=== PATIENT | female | born 1975 | race Caucasian/White ===

== ENCOUNTER 2017-04-21 20:05 | Emergency (ER) | payer OTHER ==
--- NOTE | 2017-04-21 22:02 | DIAGNOSTIC IMAGING REPORT ---
PROCEDURE: XR CERVICAL SPINE 2 OR 3 VIEW INDICATION: NECK PAIN TECHNIQUE: Three views. COMPARISON: None. FINDINGS: Normal alignment without fracture. Kyphosis centered at C4-5. Moderate degenerative changes most prominent at C5-6. Odontoid, lateral masses of C1 and prevertebral soft tissues are normal. Cervical ribs. IMPRESSION: 1. Moderate degenerative changes 2. Kyphosis suggestive of muscular spasm 3. Cervical ribs
--- NOTE | 2017-04-21 22:23 | ED CLINICAL REPORT ---
Clinical Report - Physicians/Mid Levels [facility] [address] [place] [address] 04/21/2017 20:05 Patient: JAN AHUMADA Time Seen: 21:07; initial patient contact. Arrived- By private vehicle. Historian- patient. HISTORY OF PRESENT ILLNESS Chief Complaint: NECK PAIN. It is described as being severe and in the area of the left trapezius, left side of the cervical spine and cervical spine. The quality is noted to be aching and "pain". No radiation. Modifying factors- worsened by rotation of the head to the right or left or neck flexion. Not relieved by taking hipz-yzl-crommdg analgesics or prescription medications. Not relieved by anything. Onset- about 1 week ago and it is still present and worsening. It was gradual in onset and has been constant. No bladder dysfunction, bowel dysfunction, sensory loss or motor loss. Patient denies an injury but injury to the chest. Similar symptoms previously: None. Recent medical care: Not recently seen/assessed. REVIEW OF SYSTEMS No fever, chills or headache. All systems otherwise negative, except as recorded above. PAST HISTORY Sprain. Ankle Fracture. Asthma. ADDITIONAL SURGERIES: Hysterectomy. Tubal Ligation. SOCIAL HISTORY Current every day smoker. No alcohol use or drug use. ADDITIONAL NOTES The nursing notes have been reviewed. PHYSICAL EXAM Vital Signs: 04/21/2017 21:05 BP: 150/98. HR: 91. RR: 18. O2 saturation: 97%. Temp: 98.3 F. Pain level now: 10. Have been reviewed. Hypertensive. Heart rate normal. Respiratory rate normal. Temperature normal. Oxygen saturation normal. Appearance: Alert. Appears to be in pain. Neck: Moderate pain in the entire posterior neck upon turning the head to the right, turning the head to the left, lifting the head, flexing the neck and extending the neck. Moderate muscle spasm of the left posterior neck. Moderate acute decrease in ROM secondary to pain. No vertebral tenderness. Moderate soft tissue tenderness in the left mid and lower neck area. No meningeal signs. Neuro: Oriented X 3. Mood/affect normal. No motor deficit. No sensory deficit. Reflex exam: right biceps 2+, left biceps 2+, right brachioradialis 2+ and left brachioradialis 2+. LABS, X-RAYS, AND EKG C-Spine X-rays: Prominent straightening of the cervical spine. Moderate reversal of the normal cervical lordosis. Degenerative joint disease. Views: 3 view C-spine series. Technique: good. The X-rays were independently viewed by me and interpreted contemporaneously by me. Prior films were not available for comparison. PROGRESS AND PROCEDURES Course of Care: Physical exam findings are improved. Symptoms much better. Diazepam 10 mg IM given. Disposition: Discharged home in good and improved condition. Condition: good. CLINICAL IMPRESSION Acute cervical strain. INSTRUCTIONS Apply ice for followed by dry and moist heat 20 minutes four times a day. Don't use while asleep and don't use high setting on heating pad. No lifting greater than 5 lbs until well. Your Current Medications: CONTINUE TAKING THE FOLLOWING MEDICATIONS: Dilaudid Oral. Prescription Medications: Baclofen 20 mg: take 1 orally every 8 hours. Dispense thirty (30). No refills. Follow-up: Follow up with your doctor in two days as scheduled. Screening today revealed the patient's blood pressure to be in the hypertensive range. The patient should follow up with a primary care provider for blood pressure management. (Electronically signed by Sunday Puentes Dr. 04/22/2017 2:34)
--- NOTE | 2017-04-21 22:23 | ED CLINICAL REPORT ---
Clinical Report - Physicians/Mid Levels [facility] [address] [place] [address] 04/21/2017 20:05 Patient: JAN AHUMADA Time Seen: 21:07; initial patient contact. Arrived- By private vehicle. Historian- patient. HISTORY OF PRESENT ILLNESS Chief Complaint: NECK PAIN. It is described as being severe and in the area of the left trapezius, left side of the cervical spine and cervical spine. The quality is noted to be aching and "pain". No radiation. Modifying factors- worsened by rotation of the head to the right or left or neck flexion. Not relieved by taking mopr-wtj-lovcbvb analgesics or prescription medications. Not relieved by anything. Onset- about 1 week ago and it is still present and worsening. It was gradual in onset and has been constant. No bladder dysfunction, bowel dysfunction, sensory loss or motor loss. Patient denies an injury but injury to the chest. Similar symptoms previously: None. Recent medical care: Not recently seen/assessed. REVIEW OF SYSTEMS No fever, chills or headache. All systems otherwise negative, except as recorded above. PAST HISTORY Sprain. Ankle Fracture. Asthma. ADDITIONAL SURGERIES: Hysterectomy. Tubal Ligation. SOCIAL HISTORY Current every day smoker. No alcohol use or drug use. ADDITIONAL NOTES The nursing notes have been reviewed. PHYSICAL EXAM Vital Signs: 04/21/2017 21:05 BP: 150/98. HR: 91. RR: 18. O2 saturation: 97%. Temp: 98.3 F. Pain level now: 10. Have been reviewed. Hypertensive. Heart rate normal. Respiratory rate normal. Temperature normal. Oxygen saturation normal. Appearance: Alert. Appears to be in pain. Neck: Moderate pain in the entire posterior neck upon turning the head to the right, turning the head to the left, lifting the head, flexing the neck and extending the neck. Moderate muscle spasm of the left posterior neck. Moderate acute decrease in ROM secondary to pain. No vertebral tenderness. Moderate soft tissue tenderness in the left mid and lower neck area. No meningeal signs. Neuro: Oriented X 3. Mood/affect normal. No motor deficit. No sensory deficit. Reflex exam: right biceps 2+, left biceps 2+, right brachioradialis 2+ and left brachioradialis 2+. LABS, X-RAYS, AND EKG C-Spine X-rays: Prominent straightening of the cervical spine. Moderate reversal of the normal cervical lordosis. Degenerative joint disease. Views: 3 view C-spine series. Technique: good. The X-rays were independently viewed by me and interpreted contemporaneously by me. Prior films were not available for comparison. PROGRESS AND PROCEDURES Course of Care: Physical exam findings are improved. Symptoms much better. Diazepam 10 mg IM given. Disposition: Discharged home in good and improved condition. Condition: good. CLINICAL IMPRESSION Acute cervical strain. INSTRUCTIONS Apply ice for followed by dry and moist heat 20 minutes four times a day. Don't use while asleep and don't use high setting on heating pad. No lifting greater than 5 lbs until well. Your Current Medications: CONTINUE TAKING THE FOLLOWING MEDICATIONS: Dilaudid Oral. Prescription Medications: Baclofen 20 mg: take 1 orally every 8 hours. Dispense thirty (30). No refills. Follow-up: Follow up with your doctor in two days as scheduled. Screening today revealed the patient's blood pressure to be in the hypertensive range. The patient should follow up with a primary care provider for blood pressure management. (Electronically signed by Sunday Puentes Dr. 04/22/2017 2:34)
--- NOTE | 2017-04-21 22:23 | ED NURSING NOTES ---
Clinical Report - Nurses [facility] [address] [place] [address] 04/21/2017 20:05 Patient: JAN AHUMADA TRIAGE Triage time 21:05. Acuity: LEVEL 4. Chief Complaint: NECK PAIN. --21:08 Doyle R.N. 21:05 04/21/17. BP: 150/98. HR: 91. RR: 18. O2 saturation: 97%. Temp: 98.3 F. Pain level now: 09/09. --21:08 Doyle R.N. Weight: 81.6 kg. Height/Length: 65 inches. BMI: 30. --21:07 Doyle R.N. Medications Dilaudid Oral. --21:06 Doyle R.N. Allergies No Known Drug Allergy. --21:06 Doyle R.N. History Arrived by private vehicle. Historian: patient. Onset. (1 weeks). ( pt complains of left neck pain). No history of recent trauma. Treatment SERVICE MEMBER: (dilaudid). PAST MEDICAL HX: Tetanus status: up-to-date. SOCIAL HX: Light tobacco smoker. No alcohol use or drug use. No infectious disease exposure. SELF HARM ASSESSMENT: A self harm assessment was performed. The patient answered "no" to the question "Have you recently felt down, depressed, or hopeless?", "Have you noticed less interest or pleasure in doing things?", "Do you have thoughts of harming or killing yourself?", "Are you here because you tried to hurt yourself?", "Have you ever tried to hurt yourself before today?", "Have you recently had thoughts about harming or killing others?" and "Do you have any dangerous items in your possession?". FALL RISK ASSESSMENT: Fall risk assessment completed. No fall risk identified. NUTRITIONAL RISK ASSESSMENT: The nutritional risk assessment revealed no deficiencies. FUNCTIONAL ASSESSMENT: Functional assessment: no impairments noted. LEARNING NEEDS ASSESSMENT: The learning needs assessment revealed no barriers. ABUSE ASSESSMENT: Abuse assessment: The patient was asked "Do you feel safe in your home?". SKIN INTEGRITY ASSESSMENT: Skin integrity risk assessment completed. No skin integrity risk identified. --: Lucila Kwon PROBLEMS: Sprain. Ankle Fracture. Asthma. --: Lucila Kwon ADDITIONAL SURGERIES: Hysterectomy. --: Saul Kwon. Tubal Ligation. --: Lucila Kwon Interventions ID band on patient. To treatment room. --: Lucila Kwon PHYSICAL ASSESSMENT Ambulatory to room. GENERAL / NEURO / PSYCH: Alert. Oriented X 4. Appears in no acute distress. RESPIRATORY: Respirations not labored. Chest nontender. Breath sounds within normal limits. CVS: Normal heart rate and rhythm. Capillary refill less than 2 seconds. GI / : Abdomen soft and nontender. Bowel sounds within normal limits. EXTREMITIES: Sensation intact in extremities. ROM of extremities within normal limits. BACK: Normal inspection of the neck and back. No neck or back tenderness. ROM of neck and back within normal limits. --: Lucila Kwon NURSING PROGRESS NOTES Patient identifiers checked. Call light placed in reach. Side rails up x 1. Bed placed in lowest position. Brakes of bed on. --: Lucila Kwon 21:45 04/21/2017 Diazepam (Diazepam) IM 10 mg given. Given in the left gluteus tiera. Allergies verified, confirmed 5 rights and sedative warning given to the patient. --:45 Lucila Kwon DISPOSITION / DISCHARGE Departure time: 22:30. Condition at departure: improved. No learning barriers present. Discharge instructions provided and reviewed with the patient. Reviewed medication(s) side effects, precautions, dosing and course information. Prescription(s) given to the patient. Activity restrictions (light lifting) reviewed. Patient verbalized understanding. Written instructions provided in Turkish. No warning instructions, treatment instructions, referrals given to the patient, diet instructions or follow up contact number given. No stop smoking instructions. No work note given or school note given. The patient was discharged by the physician. She was discharged home and accompanied by spouse. She left the Emergency Department ambulatory and via private vehicle. Spouse driving. FALL RISK ASSESSMENT: Fall risk assessment completed. No fall risk identified. --22:30 Lucila Kwon 22:28 04/21/17. BP: 138/78. HR: 72. RR: 14. O2 saturation: 99%. Temp: deferred. Pain level now: 0/10. --22:30 Lucila Kwon Locked/Released at 04/21/2017 22:31 by Lucila Kwon
--- NOTE | 2017-04-21 22:23 | ED ORDER SUMMARY ---
..... Patient: JAN AHUMADA OrderSheet [facility] VisitID: [id number] [address] [place] [address] 41y, F Registration Date/Time: 04/21/2017 ORDER SHEET Weight: 81.6 kg Allergies: No Known Drug Allergy GENERAL ORDERS: Cervical Spine 2 or 3V Urgent (04/21/2017 Marni Wu) ([facility] 21:28 Blanche) (21:55 [facility]) MEDICATION ORDERS: Diazepam IM 10 mg (HIGH ALERT MEDICATION, NOW) (04/21/2017 Marni Wu) (21:45 Sharla Helton.NScott) IV FLUIDS: ORDER SHEET NOTES: [Electronically signed by Naye Foss R.N. (:31 04/21/2017)] [Electronically signed by Sunday Puentes Dr. (02:34 04/22/2017)] [Electronically locked/signed by Naye Foss R.N. (:04/21/2017)]
--- NOTE | 2017-04-21 22:23 | ED ORDER SUMMARY ---
..... Patient: JAN AHUMADA OrderSheet [facility] VisitID: [id number] [address] [place] [address] 41y, F Registration Date/Time: 04/21/2017 ORDER SHEET Weight: 81.6 kg Allergies: No Known Drug Allergy GENERAL ORDERS: Cervical Spine 2 or 3V Urgent (04/21/2017 Marni Wu) ([facility] 21:28 Blanche) (21:55 [facility]) MEDICATION ORDERS: Diazepam IM 10 mg (HIGH ALERT MEDICATION, NOW) (04/21/2017 Marni Wu) (21:45 Sharla Helton.NScott) IV FLUIDS: ORDER SHEET NOTES: [Electronically signed by Naye Foss R.N. (:31 04/21/2017)] [Electronically signed by Sunday Puentes Dr. (02:34 04/22/2017)] [Electronically locked/signed by Naye Foss R.N. (:04/21/2017)]
--- NOTE | 2017-04-21 22:23 | ED NURSING NOTES ---
Clinical Report - Nurses [facility] [address] [place] [address] 04/21/2017 20:05 Patient: JAN AHUMADA TRIAGE Triage time 21:05. Acuity: LEVEL 4. Chief Complaint: NECK PAIN. --21:08 Doyle R.N. 21:05 04/21/17. BP: 150/98. HR: 91. RR: 18. O2 saturation: 97%. Temp: 98.3 F. Pain level now: 09/09. --21:08 Doyle R.N. Weight: 81.6 kg. Height/Length: 65 inches. BMI: 30. --21:07 Doyle R.N. Medications Dilaudid Oral. --21:06 Doyle R.N. Allergies No Known Drug Allergy. --21:06 Doyle R.N. History Arrived by private vehicle. Historian: patient. Onset. (1 weeks). ( pt complains of left neck pain). No history of recent trauma. Treatment COOK'S ASSISTANT: (dilaudid). PAST MEDICAL HX: Tetanus status: up-to-date. SOCIAL HX: Light tobacco smoker. No alcohol use or drug use. No infectious disease exposure. SELF HARM ASSESSMENT: A self harm assessment was performed. The patient answered "no" to the question "Have you recently felt down, depressed, or hopeless?", "Have you noticed less interest or pleasure in doing things?", "Do you have thoughts of harming or killing yourself?", "Are you here because you tried to hurt yourself?", "Have you ever tried to hurt yourself before today?", "Have you recently had thoughts about harming or killing others?" and "Do you have any dangerous items in your possession?". FALL RISK ASSESSMENT: Fall risk assessment completed. No fall risk identified. NUTRITIONAL RISK ASSESSMENT: The nutritional risk assessment revealed no deficiencies. FUNCTIONAL ASSESSMENT: Functional assessment: no impairments noted. LEARNING NEEDS ASSESSMENT: The learning needs assessment revealed no barriers. ABUSE ASSESSMENT: Abuse assessment: The patient was asked "Do you feel safe in your home?". SKIN INTEGRITY ASSESSMENT: Skin integrity risk assessment completed. No skin integrity risk identified. --: Lucila Kwon PROBLEMS: Sprain. Ankle Fracture. Asthma. --: Lucila Kwon ADDITIONAL SURGERIES: Hysterectomy. --: Saul Kwon. Tubal Ligation. --: Lucila Kwon Interventions ID band on patient. To treatment room. --: Lucila Kwon PHYSICAL ASSESSMENT Ambulatory to room. GENERAL / NEURO / PSYCH: Alert. Oriented X 4. Appears in no acute distress. RESPIRATORY: Respirations not labored. Chest nontender. Breath sounds within normal limits. CVS: Normal heart rate and rhythm. Capillary refill less than 2 seconds. GI / : Abdomen soft and nontender. Bowel sounds within normal limits. EXTREMITIES: Sensation intact in extremities. ROM of extremities within normal limits. BACK: Normal inspection of the neck and back. No neck or back tenderness. ROM of neck and back within normal limits. --: Lucila Kwon NURSING PROGRESS NOTES Patient identifiers checked. Call light placed in reach. Side rails up x 1. Bed placed in lowest position. Brakes of bed on. --: Lucila Kwon 21:45 04/21/2017 Diazepam (Diazepam) IM 10 mg given. Given in the left gluteus tiera. Allergies verified, confirmed 5 rights and sedative warning given to the patient. --:45 Lucila Kwon DISPOSITION / DISCHARGE Departure time: 22:30. Condition at departure: improved. No learning barriers present. Discharge instructions provided and reviewed with the patient. Reviewed medication(s) side effects, precautions, dosing and course information. Prescription(s) given to the patient. Activity restrictions (light lifting) reviewed. Patient verbalized understanding. Written instructions provided in Upper Sorbian. No warning instructions, treatment instructions, referrals given to the patient, diet instructions or follow up contact number given. No stop smoking instructions. No work note given or school note given. The patient was discharged by the physician. She was discharged home and accompanied by spouse. She left the Emergency Department ambulatory and via private vehicle. Spouse driving. FALL RISK ASSESSMENT: Fall risk assessment completed. No fall risk identified. --22:30 Lucila Kwon 22:28 04/21/17. BP: 138/78. HR: 72. RR: 14. O2 saturation: 99%. Temp: deferred. Pain level now: 0/10. --22:30 Lucila Kwon Locked/Released at 04/21/2017 22:31 by Lucila Kwon
--- NOTE | 2017-04-22 02:34 | ED MAR SUMMARY ---
..... Medication Administration Record [facility] [address] [address] Patient: JAN AHUMADA Visit ID: [id number] 41y, F Weight: 81.6 kg Height/Length: 65 in BMI: 30 ALLERGIES: No Known Drug Allergy Given 21:45 04/21/2017 Lucila Kwon Medication Administered: DIAZEPAM [IM] (DIAZEPAM), Dose: 10 mg IM. Medication Ordered: Diazepam IM 10 mg (HIGH ALERT MEDICATION, NOW).
--- NOTE | 2017-04-22 02:34 | ED MED RECONCILIATION SUMMARY ---
Patient: JAN AHUMADA Medication Reconciliation Report [facility] VisitID: [id number] [address] [place] [address] 41y, F Registration Date/Time: 04/21/2017 Weight: 81.6 kg Height/Length: 65 in. BMI: 30.0 ALLERGIES: No Known Drug Allergy The patient's Home Medications are listed below: CONTINUE TAKING THE FOLLOWING MEDICATIONS: Dilaudid Oral The source(s) of the original Home Medication information: Not obtained. The following Medications were given to the patient in the Emergency Department: Diazepam [IM] IM 10 mg, administered: 04/21/2017 9:45:00 PM The following Medications were prescribed to the patient: Baclofen 20 mg: take 1 orally every 8 hours. Dispense thirty (30). No refills. -- Sunday Puentes Dr.
--- NOTE | 2017-04-22 02:34 | ED MED RECONCILIATION SUMMARY ---
Patient: JAN AHUMADA Medication Reconciliation Report [facility] VisitID: [id number] [address] [place] [address] 41y, F Registration Date/Time: 04/21/2017 Weight: 81.6 kg Height/Length: 65 in. BMI: 30.0 ALLERGIES: No Known Drug Allergy The patient's Home Medications are listed below: CONTINUE TAKING THE FOLLOWING MEDICATIONS: Dilaudid Oral The source(s) of the original Home Medication information: Not obtained. The following Medications were given to the patient in the Emergency Department: Diazepam [IM] IM 10 mg, administered: 04/21/2017 9:45:00 PM The following Medications were prescribed to the patient: Baclofen 20 mg: take 1 orally every 8 hours. Dispense thirty (30). No refills. -- Sunday Puentes Dr.
--- NOTE | 2017-04-22 02:34 | ED DISCHARGE INSTRUCTIONS ---
Patient: JAN AHUMADA General Instructions [facility] VisitID: [id number] [place] [address] 41y, F Registration Date/Time: 04/21/2017 Acute cervical strain. INSTRUCTIONS Apply ice for followed by dry and moist heat 20 minutes four times a day. Don't use while asleep and don't use high setting on heating pad. No lifting greater than 5 lbs until well. Your Current Medications: CONTINUE TAKING THE FOLLOWING MEDICATIONS: Dilaudid Oral. Prescription Medications: Baclofen 20 mg: take 1 orally every 8 hours. Dispense thirty (30). No refills. Follow-up: Follow up with your doctor in two days as scheduled. Screening today revealed the patient's blood pressure to be in the hypertensive range. The patient should follow up with a primary care provider for blood pressure management. ADDITIONAL INFORMATION Neck Sprain Or Strain A sudden force that causes turning or bending of the neck (such as in a car accident) can stretch or tear muscles (strain) and ligaments (sprain) and cause neck pain. Sometimes neck pain occurs after a simple awkward movement. In either case, muscle spasm is commonly present and contributes to the pain. Unless you had a forceful physical injury (for example, a car accident or fall), X-rays are usually not ordered for the initial evaluation of neck pain. If pain continues and dose not respond to medical treatment, X-rays and other tests may be performed at a later time. Home care The following guidelines will help you care for your injury at home: You may feel more soreness and spasm the first few days after the injury. Reduce your activity level until symptoms begin to improve. When lying down, use a comfortable pillow that supports the head and keeps the spine in a neutral position. The position of the head should not be tilted forward or backward. Use ice packs (ice in a plastic bag, wrapped in a towel) to treat acute pain. Apply for 20 minutes every 24 hours during the first two days. Then, begin local heat (hot shower, hot bath or heating pad) andmassageto reduce muscle spasm. Some patients feel best alternating hot and cold treatments, or just staying with one method only. Do what feels the best to you and gives the most relief. You may use acetaminophen or ibuprofen to control pain, unless another pain medicine was prescribed.If you have chronic liver or kidney disease or ever had a stomach ulcer or GI bleeding, talk with your doctor before using these medicines. Follow-up care Follow up with your physician or this facility if your symptoms do not show signs of improvement. Physical therapy may be needed. If you had X-rays today, they didnt show any broken bones, breaks, or fractures. Sometimes fractures dont show up on the first X-ray. Bruises and sprains can sometimes hurt as much as a fracture. These injuries can take time to heal completely. If your symptoms dont improve or they get worse, talk with your doctor. You may need a repeat X-ray. When to seek medical care Get prompt medical attention if any of the following occur: Pain becomes worse or spreads into your arms Weakness or numbness in one or both arms You have been given the following additional information: Neck Sprain/Strain No lifting greater than 5 lbs until well. (Electronically signed by Sunday Puentes Dr. 04/22/2017 2:34)
--- NOTE | 2017-04-22 02:34 | ED MAR SUMMARY ---
..... Medication Administration Record [facility] [address] [place] [address] Patient: JAN AHUMADA Visit ID: [id number] 41y, F Weight: 81.6 kg Height/Length: 65 in BMI: 30 ALLERGIES: No Known Drug Allergy Given 21:45 04/21/2017 Lucila Kwon Medication Administered: DIAZEPAM [IM] (DIAZEPAM), Dose: 10 mg IM. Medication Ordered: Diazepam IM 10 mg (HIGH ALERT MEDICATION, NOW).
== END 2017-04-21 22:30 | disposition home or self-care (01) ==
LOC: ED SRH 20:05
DX: S16.1XXA Strain of muscle, fascia and tendon at neck level, initial encounter (principal); X50.1XXA Overexertion from prolonged static or awkward postures, initial encounter; Y93.9 Activity, unspecified; Y99.9 Unspecified external cause status; Y92.9 Unspecified place or not applicable; F17.200 Nicotine dependence, unspecified, uncomplicated